=== PATIENT | male | born 1980 | race Caucasian/White ===

== ENCOUNTER → 2019-08-08 09:02 | Outpatient (CLI) | payer OTHER, SELFPAY ==
[2019-08-08 08:41] VITALS: BMI 31.6
--- NOTE | 2019-08-08 09:05 | RAD_ITS ---
STUDY: X-RAY - LEFT SHOULDER REASON FOR EXAM: Male, 39 years old. PATIENT STATES A PALLET FELL WHILE HE WAS LIFTING IT AND JERKED AND ALSO HIT HIS LEFT SHOULDER. PAIN ENTIRE LEFT SHOULDER. LIMITED RANGE OF MOTION. TECHNIQUE: 4 view(s) of the shoulder. COMPARISON: None. FINDINGS: Small nonspecific curvilinear lucency at the glenoid. Small loose body at the glenohumeral articulation. No dislocation. No acute bone destruction. Mild left acromioclavicular joint arthrosis. Clear left lung. Normal soft tissue structures. RAD/Shoulder min 2 Views IMPRESSION: Small nonspecific glenoid curvilinear lucency (vascular channel versus nondisplaced fracture; consider CT or MRI evaluation) Small glenohumeral loose body Mild osteoarthritis Electronically Signed: Carlos Olmedo DO at 9:30 EDT Tel , Service support ,
== END ==
PROVIDERS: PCP Family Medicine; Referring Provider Physician Assistant; Visit Provider Physician Assistant
DX: M25.512 Pain in left shoulder (principal)
CPT/HCPCS: 73030

== ENCOUNTER → 2019-08-09 16:12 | Outpatient (CLI) | payer OTHER, SELFPAY ==
[2019-08-08 08:41] VITALS: BMI 31.6
--- NOTE | 2019-08-09 16:15 | MRI_ITS ---
STUDY: MRI LEFT SHOULDER REASON FOR EXAM: Male, 39 years old. throbbing shoulder pain x 2 days after work injury, limited rom TECHNIQUE: Standardized fat and water weighted pulse sequences were obtained in all 3 orthogonal planes. COMPARISON: X-ray 08/08/2019. FINDINGS: Mild thickening and signal abnormality in the supraspinatus tendon consistent with tendinosis. No high-grade tear. Mild thickening and signal abnormality in the subscapularis tendon consistent with tendinosis. No high-grade tear. Normal infraspinatus tendon. Normal teres minor tendon. There is interstitial edema in the subscapularis muscle and coracobrachialis muscle. Moderate edema surrounding the latissimus dorsi muscle. Small glenohumeral joint effusion. Normal biceps labral complex. Normal intracapsular long biceps tendon. Normal labrum. Middle glenohumeral ligament appears torn. Marked soft tissue edema anterior to the subscapularis tendon and capsule. Marrow signal is normal. No fracture, bone contusion, or osteonecrosis. Mild acromioclavicular arthrosis. There is a Type II morphology (curved), with a neutral orientation. There is no subacromial-subdeltoid bursal fluid. Normal visualized coracohumeral and coracoacromial ligaments. Visualized pectoralis major and deltoid muscle are intact. MRI/Upper Ext Joint Only(Routine) IMPRESSION: 1. Low grade subscapularis and coracobrachialis muscle strain. 2. Middle glenohumeral ligament appears torn. 3. Edema surrounding latissimus dorsi muscle suggests low-grade strain. 4. Chronic supraspinatus and subscapularis tendinosis. 5. Moderate anterior soft tissue edema. 6. Joint effusion. Electronically Signed: Sarah Meadows MD at 22:48 EDT Tel , Service support ,
== END ==
PROVIDERS: PCP Family Medicine; Referring Provider Physician Assistant; Visit Provider Physician Assistant
DX: S43.402A Unspecified sprain of left shoulder joint, initial encounter (principal); S43.422A Sprain of left rotator cuff capsule, initial encounter
CPT/HCPCS: 73221